=== PATIENT | male | born 1965 | race Caucasian/White ===

== ENCOUNTER → 2020-09-09 | Day surgery (SDC) | payer OTHER ==
[~2020-09-09] VITALS: Ht 177.8 cm; Wt 86.2 kg
[~2020-09-09] MED LIST: CENTRUM COMPLE1 EACH PO; CO Q-10300 MG PO; EZETIMIBE-SIMV1 EAC3 PO; HARD NAILS2500 MCG PO; LOSARTAN POTASS50 MG PO; ROBAXIN750 MG PO; VITAMIN D3250 MCG PO; ZOFRAN8 MG PO
== END | disposition home or self-care (01) ==
LOC: FAS 06:52
DX: K57.32 Diverticulitis of large intestine without perforation or abscess without bleeding (principal); I10 Essential (primary) hypertension; E78.00 Pure hypercholesterolemia, unspecified; Z88.0 Allergy status to penicillin; F17.210 Nicotine dependence, cigarettes, uncomplicated; Z90.49 Acquired absence of other specified parts of digestive tract
CPT/HCPCS: J2704; J7120